=== PATIENT | female | born 1965 | race Two or more races ===

== ENCOUNTER 2019-06-14 22:18 | Emergency (ER) | payer OTHER ==
[~2019-06-14] VITALS: Ht 165.1 cm; Wt 108.9 kg
--- NOTE | 2019-06-14 22:41 | NUR ---
PT HUI C/O L ANKLE PAIN FOLLOWING TRIP AND FALL, "FEELS TWISTED", IN ROOM WAITING FOR MD SANDERS
[2019-06-14] MEDS ORDERED: ONDANSETRON 4 MG TAB.RAPDIS ONE (23:21)
[2019-06-14] MEDS ORDERED: HYDROCODONE/APAP 5/325MG 1 EACH TABLET ONE (23:21)
[2019-06-14] MEDS ORDERED: HYDROCODONE/APAP 5/325MG 1 EACH TABLET PO ONE (23:30)
[2019-06-14] MEDS ORDERED: ONDANSETRON 4 MG TAB.RAPDIS SL ONE (23:30)
--- NOTE | 2019-06-15 00:50 | NUR ---
Patient discharged to home in stable condition. Written and verbal after care instructions given. Patient verbalizes understanding of instruction.
[2019-06-15 00:52] VITALS: BP 122/79
== END 2019-06-15 00:53 | disposition home or self-care (01) ==
LOC: ER 22:21
DX: M25.572 Pain in left ankle and joints of left foot (principal); Z98.890 Other specified postprocedural states; W01.0XXA Fall on same level from slipping, tripping and stumbling without subsequent striking against object, initial encounter; Y93.89 Activity, other specified; Y92.89 Other specified places as the place of occurrence of the external cause; Y99.8 Other external cause status
CPT/HCPCS: 29515; 73610; 73630; 99283; Q0162

== ENCOUNTER 2021-05-15 10:54 | Emergency (ER) | payer OTHER ==
[~2021-05-15] VITALS: Ht 165.1 cm; Wt 113.4 kg
[2021-05-15 11:05] VITALS: BP 136/78
== END 2021-05-15 11:13 | disposition home or self-care (01) ==
LOC: ER 10:54
DX: S50.862A Insect bite (nonvenomous) of left forearm, initial encounter (principal); W57.XXXA Bitten or stung by nonvenomous insect and other nonvenomous arthropods, initial encounter; Y93.89 Activity, other specified; Y92.89 Other specified places as the place of occurrence of the external cause; Y99.8 Other external cause status

== ENCOUNTER 2022-10-11 14:51 | Emergency (ER) | payer OTHER ==
[~2022-10-11] VITALS: Ht 165.1 cm; Wt 124.7 kg
[2022-10-11] MEDS ORDERED: IBUPROFEN 400 MG TABLET ONE (15:31)
[2022-10-11] MEDS: IBUPROFEN 400 MG TABLET PO ONE (15:33)
--- NOTE | 2022-10-11 15:40 | NUR ---
MOTRIN PO GIVEN INDICATED, BRAXTON WELL.
--- NOTE | 2022-10-11 15:48 | NUR ---
Patient does not wish to proceed with medical care recommended by Dr. Peters. Patient given information related to possible complications, up to and including , which could occur as a result of leaving the hospital at this time. Patient verbalizes understanding of risks involved due to leaving against medical advice. Patient has signed AMA form.
[2022-10-11 15:49] VITALS: BP 143/77
== END 2022-10-11 15:49 | disposition left against medical advice (07) ==
LOC: ER 14:52
DX: M25.562 Pain in left knee (principal)
CPT/HCPCS: 73564-TC